=== PATIENT | female | born 1965 | race African-American/Black ===

== ENCOUNTER → 2021-10-01 10:45 | Outpatient (CLI) | payer OTHER, SELFPAY ==
--- NOTE | ~2021-10-01 | DEXA_ITS ---
Bone Density Report Name: FAUSTO SCHRADER Age: 56 Sex: Female Ethnicity: Black Date of : 1965 Indication: postmenopausal; screening for osteoporosis; height loss; Referring Provider: BERTA MURILLO Study: Bone densitometry was performed. Exam Date: October 01, 2021 Accession number: [id number] Bone Density: Region BMD T-score Z-score Classification AP Spine (L1-L4) 1.028 -0.2 0.2 Normal Femoral Neck (Left) 0.868 0.2 0.3 Normal Total Hip (Left) 0.920 -0.2 -0.1 Normal Femoral Neck (Right) 0.892 0.4 0.5 Normal Total Hip (Right) 0.913 -0.2 -0.1 Normal Total Hip Mean 0.917 -0.2 -0.1 Normal World Health Organization criteria for BMD impression classify patients as: Normal (T-score at or above -1.0), Osteopenia (T-score between -1.0 and -2.5), or Osteoporosis (T-score at or below -2.5). 10-year Fracture Risk: FRAX not reported because: All T-scores for Spine Total, Hip Total, Femoral Neck at or above -1.0 Previous Exams: Region Exam Age BMD T-score BMD Change BMD Change Date g/cm2 vs Baseline vs Previous AP Spine(L1-L4) 10/01/2021 56 1.028 -0.2 -0.021 -0.021 06/26/2017 52 1.049 0.0 Total Hip(Left) 10/01/2021 56 0.920 -0.2 -0.003 -0.003 06/26/2017 52 0.923 -0.2 Total Hip(Right) 10/01/2021 56 0.913 -0.2 0.000 0.000 06/26/2017 52 0.914 -0.2 *Denotes significance at 95% confidence level, LSC for AP Spine = 0.022 g/cm2, LSC for Total Hip = 0.027 g/cm2 Clinical Information Provided by Patient: Has used the following medications: Vitamin D, MTV Patient maximum height was 63 Menopause Age: 48 Does not regularly consume dairy products Onset of menses at age 10 Number of children 0 Missed period for more than 6 months in a row Impression: The patient has normal bone mass. No significant bone loss was observed. Discussion: BONE DENSITY IS ABOVE THE MINIMUM DESIRABLE LEVEL AT ALL SKELETAL SITES TESTED. This patient?s bone mineral density is above the minimum desirable level (T-score -1.0 or better) at all sites measured. The patient should follow a healthful lifestyle (good nutrition with adequate calcium and vitamin D, and appropriate weight-bearing exercise). Follow-Up: Consider repeating this study in 5 years or sooner if there is some new clinical indication. Reported by: MANOHAR on 10/01/2021 11:28:00 AM. xuan Kraft
--- NOTE | ~2021-10-01 | MM_ITS ---
EXAMINATION: MM screening susie BI w madelyn HISTORY: Screening TECHNIQUE: Craniocaudal and mediolateral oblique 3-D tomosynthesis images were obtained and synthetic 2-D images were generated. CAD analysis was submitted and interpreted. COMPARISON: Comparison to multiple prior studies sequentially, with oldest reviewed study dated 09/28. BREAST PARENCHYMAL COMPOSITION: There are scattered areas of fibroglandular density. FINDINGS: There is no evidence of suspicious mass, calcification, or architectural distortion to sugg est malignancy in either breast. There has been no suspicious interval change. IMPRESSION: 1. No mammographic evidence of malignancy. 2. Recommend routine screening mammography in one year. BI-RADS Category 1: Negative Reviewed, dictated and finalized at location A.
== END ==
PROVIDERS: PCP Emergency Medicine; Visit Provider Emergency Medicine
DX: Z12.31 Encounter for screening mammogram for malignant neoplasm of breast (principal); Z78.0 Asymptomatic menopausal state
CPT/HCPCS: 77063; 77067; 77080

== ENCOUNTER → 2022-01-25 13:34 | Outpatient (CLI) | payer OTHER, SELFPAY ==
--- NOTE | ~2022-01-25 | MR_ITS ---
EXAMINATION: MR foot RT wo con DATE: 01/25/2022 14:37 INDICATION: Lesion of the plantar nerve with 4-5 months of worsening intermittent pain at the right f orefoot. TECHNIQUE: Magnetic resonance imaging (MRI) of the left fore/mid foot was performed without intraveno us contrast. Sequences included sagittal T1-weighted FSE, sagittal fluid sensitive FSE STIR, coronal PD-weighted FS FSE, coronal T1-weighted FSE, axial PD-weighted FS FSE, and axial PD-weighted FSE. COMPARISON: None FINDINGS: No fracture or pathologic marrow replacing process.. Mild hallux valgus with mild cystlike change at the medial head of the first metatarsal likely representing secondary bunion. Alignment is otherwise normal. Polyarticular osteoarthritis, moderate severity at the second, third and fourth tarsal metata rsal joints with small regions of underlying subarticular edema-like signal change. Mild to moderate osteoarthritis at the calcaneocuboid joint with prominent edema-like signal change surrounding a larg e subarticular cyst with sclerotic margins cuboid underlying the articular surface at the calcaneocub oid joint. Mild osteoarthritis at the remaining tarsal metatarsal joints, the naviculocuneiform, firs t metatarsophalangeal and a few of the interphalangeal joints. Small joint effusions and/or synovitis at the second and third metatarsophalangeal joints. There is nonspecific edema in the soft tissues a round the second and third metatarsophalangeal joints. No abnormally increased intermetatarsal bursal fluid collection to suggest bursitis. No abnormal soft tissue masses between the heads of metatarsal s to suggest a plantar neuroma. The Lisfranc ligament complex and the collateral ligament complexes a t the tarsal metatarsal and interphalangeal joints are normal. The visualized portions of the flexor and extensor tendons are normal. IMPRESSION: 1. Mild to moderate polyarticular osteoarthritis in the right foot most prominent in the midfoot. 2. Nonspecific small joint effusions and/or synovitis at the second and third tarsal metatarsal joint s with mild surrounding edema which is of indeterminate etiology. The joint spaces appear relatively preserved with no erosions or other suspicious osseous abnormality. Reviewed, dictated and finalized at location A. INTERVIEWER IMPRESSION: 1. Mild to moderate polyarticular osteoarthritis in the right foot most promine nt in the midfoot. 2. Nonspecific small joint effusions and/or synovitis at the second and third t arsal metatarsal joints with mild surrounding edema which is of indeterminate e tiology. The joint spaces appear relatively preserved with no erosions or other suspicious osseous abnormality.
== END ==
PROVIDERS: PCP Emergency Medicine; Visit Provider Orthopaedic Surgery
DX: G57.61 Lesion of plantar nerve, right lower limb (principal); M19.071 Primary osteoarthritis, right ankle and foot; M25.471 Effusion, right ankle
CPT/HCPCS: 73718

== ENCOUNTER 2022-03-30 00:44 | Day surgery (SDC) | payer OTHER, SELFPAY ==
[2022-03-15 14:31] VITALS: BMI 48.8
--- NOTE | 2022-03-15 14:53 | PC.NURSE ---
Report to the Outpatient Waiting Room, entrance under the green pavilion located off [facility], at 0600 on 03-30-22. Planned Procedure Time: 0730. Time changes happen often and if your time is changed the preop area will call you the afternoon before. - You and your visitor will be asked to self-screen and do not enter if you have any COVID symptoms. - Only one visitor is requested with a max of two and NO children visitors are allowed at this time. - The patient visitor may be requested to leave or wait in car when not with patient due to distancing restrictions. - A mask is required within the hospital. Patients may have clear liquids (water, carbonated beverages, clear teas, apple juice) until 3 hours prior to surgery with a maximum of 20 ounces. 0430 - No food from midnight until time of surgery - Infants may have breast milk until 4 hours before surgery, infant formula 6 hours prior to surgery. - Children will be allowed to drink immediately following surgery. If applicable, please bring a bottle or sippy cup to assist with drinking. Juice, water, soda, and popsicles are readily available. For infants on formula, please bring formula the day of surgery. Pacifiers are allowed. Take the following medications with a SIP of water the morning of surgery: None Medications to discontinue per physician: vitamins and supplements Date to take last dose: 03-27-22 Please no make-up, nail mauritian, hairspray, perfume, deodorant, or body powder the day of surgery. No jewelry (including any body piercings) or valuables the day of surgery, leave them at home. Please take a shower or bath the night before, or the morning of, surgery with an antibacterial soap. Wear comfortable, loose fitting clothing. Children are encouraged to wear pajamas. - Jewelry must be removed prior to entering the operating room. Rings and piercings that are not removed may be cut off. - The hospital will not accept responsibility for valuables. - Please leave all valuables, including medications, at home the day of surgery. If you are going home after surgery, a licensed hazmat tanker driver must drive you home. - NO public transportation without another adult if you receive anesthesia. - We recommend that an adult stay with you for 24 hours following discharge. - We also recommend that you do not drive, make important decision, drink alcoholic beverages, or take any drugs that were not prescribed by your health care provider for at least 24 hours after your discharge time. For Pediatric surgeries, we recommend two adults accompany the child home. Follow any additional instructions given to you from your surgeon. If you or anyone in your household have experienced Covid symptoms in the past week, please notify your surgeon or the nurse liaison at the phone number below for possible testing. Telephone instructions given to Aliya Crews and asked if any additional questions and then verbalized understanding. Patient advised to call surgeon office or pre surgery nurse liaison [phone] if any additional questions.
--- NOTE | 2022-03-29 12:01 | PM.IMHP ---
H&P: HPI History of Present Illness Date/Time: 03/29/22 12:01 Chief Complaint: Right foot pain and deformity Narrative: 56-year-old with right hallux and 2nd toe pain and deformity. Unrelieved with injections, accommodative shoes and inserts. MRI shows inflammation as well as hallux valgus deformity. Presents for operative treatment. Review of Systems Constitutional: Constitutional: Denies fever(s) Eyes: Eyes: Denies blurry vision ENT: Reports Normal hearing present Cardiovascular: Cardiovascular: Denies chest pain and Denies dyspnea Respiratory: Respiratory: Denies dyspnea and Denies wheezing Gastrointestinal: Gastrointestinal: Denies abdominal pain Genitourinary: Genitourinary: Denies urinary urgency Musculoskeletal: Musculoskeletal: Reports as per HPI and Denies numbness Integumentary/Breasts: Skin/Breast: Denies changing lesions and Denies sores Neurologic: Reports Normal hearing present, Denies behavioral changes, Denies confusion, Denies numbness and Denies convulsions Psychiatric: Psychiatric: Denies behavioral changes, Denies confusion and Denies hallucinations Endocrine: Endocrine: Denies heat intolerance Hematologic/Lymphatic: Hematologic/Lymphatic: Denies easy bleeding Allergic/Immunologic: Allergic/Immunologic: Denies wheezing PMFSH Past Medical History Medical History Arthritis Degenerative joint disease of knee GERD (gastroesophageal reflux disease) Hallux valgus (acquired), right foot HLD (hyperlipidemia) 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 Osteoarthritis of left knee Osteoarthritis of right knee Weight gain Family History Family History Mother Hypertension Sibling Cerebrovascular accident Family history of diabetes mellitus in first degree relative Family history of lung cancer Social History Social History Smoking status: Never smoker Second hand tobacco smoke exposure: No Alcohol intake: current Alcohol use details: occasionally Substance use: never Substance use type: does not use Living arrangements: with family Gender identity (if verbalized by the patient): Female Spiritual care concerns: No Meds Home Medications and Allergies Home Medications Medication Instructions Recorded Confirmed Type cholecalciferol (vitamin D3) 125 125 mcg PO DAILY 07/21/20 03/15/22 History mcg (5,000 unit) capsule multivitamin 1 tablet PO DAILY 12/05/21 03/15/22 History omega-3 fatty acids [Fish Oil] See Rx Instructions .Route .COMPLEX 12/05/21 03/15/22 History magnesium 200 mg tablet 400 mg PO DAILY 03/15/22 03/15/22 History Allergies Allergy/AdvReac Type Severity Reaction Status Date / Time No Known Allergies Allergy Verified 03/15/22 14:25 Exam Const: General: No confusion Orientation/consciousness: No confusion HENMT: Head: normal to inspection, normocephalic and atraumatic Eyes: Conjunctivae: conjunctivae normal Sclera: sclerae normal Neck: Neck: supple and nontender Chest: Chest palpation & inspection: normal inspection of the chest Resp: Effort & Inspection: normal respiratory effort and no audible wheezes Cardio: Rate: regular rate Rhythm: regular rhythm : General: Yes deferred Skin: General skin exam: no rashes or lesions noted Neuro: General: No confusion Extrem: General: capillary refill normal Right upper extremity: normal to inspection Left upper extremity: normal to inspection Right lower extremity: normal to inspection, hip/thigh Details: normal to inspection, knee Details: normal ROM and knee ligament exam normal, ankle Details: other (good capillary refill in toes, 2+ DP pulse, light touch sensation intact); no tenderness ( negative Homans) and no crepitus and foot Details: abnormal to inspection
[2022-03-30] VITALS (7 sets, daily range): BP systolic 97–119; BP diastolic 44–74; PULSE 66–79; RESP 12–18; TEMP 36.7–36.8; O2SAT 97–100
--- NOTE | ~2022-03-30 | XR_ITS ---
EXAMINATION: XR surgery orthopedic DATE: 03/30/2022 08:58 INDICATION: Right hallux valgus. TECHNIQUE: 2 intraoperative fluoroscopic views of right foot were obtained. I was not present. Fluoro scopy exposure time was 14 seconds. COMPARISON: Right foot radiographs 12/14/2021 FINDINGS: There are changes of bunionectomy. There is an osteotomy of first proximal phalanx with sta ple fixation. IMPRESSION: 1. Right-sided hallux valgus correction. Reviewed, dictated and finalized at location A. SUPPORT SPECIALIST
--- NOTE | 2022-03-30 06:42 | WPDANESEPPF ---
Anes - Initial Pre Proc Eval Procedure: Operation Date: 03/30/22 07:30 Proposed Procedures p Right Hallux Valgus Correction with First Metatarsal Osteotomy, Possible Phalangeal Osteotomy and Debridement Second Metatarsal Phalangeal Joint - Dandre Galarza MD Date/Time: 03/30/22 06:42 Surgeon: Dandre Galarza MD Pre Op Diagnosis: Rt Hallux Valgus, 2nd MTP, Capsulitis Patient Data Age: 56 Gender: F Height: 1.57 m Weight: 121.11 kg Allergies Allergy/AdvReac Type Severity Reaction Status Date / Time No Known Allergies Allergy Verified 03/15/22 14:25 Home Medications Medication Instructions Recorded Confirmed Type cholecalciferol (vitamin D3) 125 125 mcg PO DAILY 07/21/20 03/15/22 History mcg (5,000 unit) capsule multivitamin 1 tablet PO DAILY 12/05/21 03/15/22 History omega-3 fatty acids [Fish Oil] See Rx Instructions .Route .COMPLEX 12/05/21 03/15/22 History magnesium 200 mg tablet 400 mg PO DAILY 03/15/22 03/15/22 History Patient hx anesthesia problems: none Family hx anesthesia problems: none Results Review: All pre-operative results and documents have been reviewed as part of the pre-operative evaluation. 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 Osteoarthritis of left knee Osteoarthritis of right knee Weight gain Family History Family History Mother Hypertension Sibling Cerebrovascular accident Family history of diabetes mellitus in first degree relative Family history of lung cancer Social History Social History Smoking status: Never smoker Second hand tobacco smoke exposure: No Alcohol intake: current Alcohol use details: occasionally Substance use: never Substance use type: does not use Living arrangements: with family Gender identity (if verbalized by the patient): Female Spiritual care concerns: No Anes - Eval Final PreProcedure Day of Procedure 03/30/22 06:42 Patient weight: morbidly obese Heart: regular rate and rhythm Lungs: clear to auscultation Airway: Mallampati scale class II Neurological: alert and oriented Last oral intake: >/= 8 hours ASA classification: III Emergent: no Anesthetic plan: proceed Anesthesia type and monitoring: general LMA and standard monitoring Results Review: All pre-operative results and documents have been reviewed as part of the pre-operative evaluation. Informed Consent: The patient's anesthetic plan and its attendant risks and benefits were discussed with the patient/family/POA. Questions were solicited and answers provided to the satisfaction of the patient/family/POA.
[2022-03-30] MEDS: LACTATED RINGERS 1,000 ML 30 ML IV CONT ×2 (06:51→08:59)
[2022-03-30] MEDS: KETOROLAC 15 MG/ML VIAL (*BKC) IV PUSH (06:52)
[2022-03-30] MEDS: ACETAMINOPHEN 500 MG TABLET 1000 MG PO (06:52)
--- NOTE | 2022-03-30 07:11 | WPDHPUPDATE1 ---
History and Physical Update Update Date/Time: 03/30/22 07:11 History and Physical has been reviewed, including an updated exam of the patient. There are NO changes in the patient's condition. Hallux valgus correction with 1st metatarsal osteotomy and phalangeal osteotomy, debride 2nd mtp joint. Risks, benefits, and alternatives have been discussed and questions answered. Patient agrees to proceed with procedure.
--- NOTE | 2022-03-30 07:20 | SUR.PREOP ---
PT STATES SHE HAS A WALKER TO USE POST OPERATIVELY, WILL ORDER PT FOR TRAINING
[2022-03-30] MEDS: ceFAZolin 3 GM/D5W 100 ML 100 ML IVPB (07:28)
[2022-03-30] MEDS: BUPIVACAINE HCL 0.5% PF 30 ML VIAL INFILTRATE (08:04)
--- NOTE | 2022-03-30 09:12 | W.PM.PROC2 ---
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 Failed non operative treatment with injections inserts and modified shoe wear. Presents now for operative treatment. MRI shows mild degenerative changes. Findings Second metatarsophalangeal joint with mild synovitis. Compression plantar nerve between the 2nd and 3rd metatarsal. Description of Procedure After informed consent was given, the operative extremity was marked in the preoperative holding area. The patient received intravenous antibiotics. The patient was brought to the operating room where they underwent a general anesthetic by the anesthesia team. The patient was positioned supine on the operating room table. A time-out was performed confirming the patient, site of the surgery, and the plan for surgery. The right lower extremity was then prepped and draped in the usual sterile surgical fashion using ChloraPrep skin solution. Foot and ankle were exsanguinated and a calf tourniquet was inflated to 225 mmHg pressure. A longitudinal incision was then made along the medial border of the 1st ray centered over the medial eminence with a #15 blade knife. The previous incision was utilized. Hemostasis was controlled with electric cautery. The dorsal and plantar sensory nerves were identified and retracted bluntly. A medial capsulotomy was then performed. This was reflected off the medial eminence. The joint was inspected for evaluation of degenerative changes. A lateral release was then performed through the joint with a #15 blade knife. The medial eminence was then resected with a sagittal saw in line with the medial border of the foot. Correction of the deformity was performed with a chevron-shaped osteotomy performed with sagittal saw from medial to lateral through the distal portion of the 1st metatarsal. The lateral portion of the bone cut was completed with an osteotome to protect the soft tissue. The capital fragment was then translated laterally and impacted on to the 1st metatarsal shaft. Lateral translation and impaction corrected both hallux valgus deformity and correction of the distal metatarsal articular angle. Temporary fixation was performed and alignment was verified with image intensification. Hallux valgus angle correction, intermetatarsal angle correction and distal metatarsal articular angle were verified. Fixation was achieved with 2.0 millimeter bioabsorbable pins. Two pins were utilized. Image intensification confirmed final alignment. Rotation was verified visually. The wound was then thoroughly irrigated with antibiotic solution. The capsule was repaired through a drill hole in the distal 1st metatarsal with 0 Vicryl interrupted suture. The dorsal limb of the capsule was repaired with 00 Vicryl interrupted suture. Subcutaneous tissue was repaired with 000 Monocryl interrupted suture and the skin approximated with 0000 nylon running suture. Local anesthetic with 0.5% Marcaine plain was injected in the soft tissue. Clinically and fluoroscopically there was still hallux valgus interphalangeus present. Proximal phalanx osteotomy was indicated. Medial incision made along the proximal phalanx with 15 blade knife. Hemostasis controlled electrocautery. Dissection down to the medial aspect of the proximal phalanx. Retractors placed. Sagittal saw used to make a medial closing wedge osteotomy transversely across the proximal phalanx. Image intensification confirmed placement of the osteotomy. Fixation was achieved with the Arthrex 10 millimeter x 9 millimeter staple. Good stability and fixation were noted. Image inte
[2022-03-30] MEDS: oxyCODONE HCL (*CRX) 5 MG TAB IR PO (10:20)
== END 2022-03-30 11:13 | disposition home or self-care (01) ==
PROVIDERS: PCP Emergency Medicine; Visit Provider Orthopaedic Surgery
PROC: (CPT 28750; principal; 2022-03-30 07:30)
DX: M20.11 Hallux valgus (acquired), right foot (principal); M20.5X1 Other deformities of toe(s) (acquired), right foot; M65.861 Other synovitis and tenosynovitis, right lower leg; G57.61 Lesion of plantar nerve, right lower limb; M19.071 Primary osteoarthritis, right ankle and foot; E66.01 Morbid (severe) obesity due to excess calories; Z68.43 Body mass index [BMI] 50.0-59.9, adult
CPT/HCPCS: 28299; 28022; 97161; 99199; A9270; C1713; J0690; J1100; J1885; J2250; J2370; J2405; J2704; J3010; J7120

== ENCOUNTER → 2022-11-27 12:16 | Outpatient (CLI) | payer OTHER, SELFPAY ==
--- NOTE | ~2022-11-27 | MM_ITS ---
EXAMINATION: MM screening susie BI w madelyn HISTORY: Screening mammogram TECHNIQUE: Craniocaudal and mediolateral oblique 3-D tomosynthesis images were obtained and synthetic 2-D images were generated. CAD analysis was submitted and interpreted. COMPARISON: 10/01/2021, 11/25/2018 bilateral screening mammogram examinations BREAST PARENCHYMAL COMPOSITION: There are scattered areas of fibroglandular density. FINDINGS: There is no evidence of suspicious mass, calcification, or architectural distortion to sugg est malignancy in either breast. There has been no suspicious interval change. IMPRESSION: 1. No mammographic evidence of malignancy. 2. Recommend routine screening mammography in one year. BI-RADS Category 1: Negative Reviewed, dictated and finalized at location A.
== END ==
PROVIDERS: PCP Registered Nurse; Visit Provider Registered Nurse
DX: Z12.31 Encounter for screening mammogram for malignant neoplasm of breast (principal)
CPT/HCPCS: 77063; 77067

== ENCOUNTER 2024-01-16 14:50 | Outpatient (CLI) | payer OTHER, SELFPAY ==
--- NOTE | ~2024-01-16 | MM_ITS ---
EXAMINATION: MM screening [facility] BI w madelyn HISTORY: Screening mammogram TECHNIQUE: Craniocaudal and mediolateral oblique 3-D tomosynthesis images were obtained and synthetic 2-D images were generated. CAD analysis was submitted and interpreted. COMPARISON: 11/27/2022, 10/01/2021, 11/25/2018 BREAST PARENCHYMAL COMPOSITION:Not Dense. There are scattered areas of fibroglandular density. FINDINGS: No suspicious mass, calcification, or architectural distortion are identified in either noe ast to suggest malignancy. There has been no suspicious interval change. IMPRESSION: No mammographic evidence of malignancy. Recommend routine screening mammography in one year. BI-RADS Category 1: Negative Reviewed, dictated and finalized at location .
== END 2024-01-16 14:51 | disposition home or self-care (01) ==
LOC: ANHIMG 14:52
PROVIDERS: PCP Registered Nurse; Visit Provider Registered Nurse
DX: Z12.31 Encounter for screening mammogram for malignant neoplasm of breast (principal)
CPT/HCPCS: 77063; 77067

== ENCOUNTER 2025-02-03 08:28 | Outpatient (CLI) | payer OTHER, SELFPAY ==
--- NOTE | ~2025-02-03 | MM_ITS ---
EXAMINATION: MM screening susie BI w madelyn HISTORY: Screening TECHNIQUE: Craniocaudal and mediolateral oblique 3-D tomosynthesis images were obtained and synthetic 2-D images were generated. CAD analysis was submitted and interpreted. COMPARISON: Comparison to multiple prior studies sequentially, with oldest reviewed study dated 06/26/2017. BREAST PARENCHYMAL COMPOSITION: Not dense: There are scattered areas of fibroglandular density. FINDINGS: There is no evidence of suspicious mass, calcification, or architectural distortion to suggest malignancy in either breast. There has been no suspicious interval change. IMPRESSION: 1. No mammographic evidence of malignancy. 2. Recommend routine screening mammography in one year. BI-RADS Category 1: Negative Reviewed, dictated and finalized at location O. 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
== END 2025-02-03 08:29 | disposition home or self-care (01) ==
LOC: ANHFOHIMG 08:30
PROVIDERS: PCP Registered Nurse; Visit Provider Registered Nurse
DX: Z12.31 Encounter for screening mammogram for malignant neoplasm of breast (principal)
CPT/HCPCS: 77063; 77067